=== PATIENT | male | born 1975 | race Two or more races ===

== ENCOUNTER 2017-12-06 01:28 | Emergency (ER) | payer MEDICAID, OTHER ==
[~2017-12-06] VITALS: Ht 177.8 cm; Wt 172.4 kg
[2017-12-06] MEDS ORDERED: NALOXONE HCL 0.4 MG/ML AMPUL ONE (01:38)
--- NOTE | 2017-12-06 01:40 | NUR ---
Pt [id number] [facility] D/T BEING LETHARGIC AND SLURRING SPEECH. Pt IS INCOHERENT AND GOING IN AND OUT OF SLEEP, WITH SLURRED & DELAYED SPEECH. PER EMS REPORT. Pt TOOK SEROQUIL & TRAZADONE. Pt TRANSFERED TO BED SAFELY. MD AT BEDSIDE.
[2017-12-06] MEDS ORDERED: IV NS 0.9% 500 ML BAG IV ONE (02:00)
[2017-12-06 02:10] LABS: BASOPHILS % (AUTO) 0.6 % (0.0-2.0); EOSINOPHILS % (AUTO) 4.6 % (0.0-6.0); HEMATOCRIT 40 % (39-51); HEMOGLOBIN 13.4 g/dL (13.5-17.5); LYMPHOCYTES # (AUTO) 2.1 /CMM (0.8-4.8); LYMPHOCYTES % (AUTO) 33.7 % (20.0-44.0); MEAN CORPUSCULAR HEMOGLOBIN 30 PG (26.0-33.0); MEAN CORPUSCULAR HGB CONC 33 g/dl (31.0-36.0); MEAN CORPUSCULAR VOLUME 89 fL (80-96); MONOCYTES # (AUTO) 0.6 /CMM (0.1-1.30); MONOCYTES % (AUTO) 8.9 % (2.0-12.0); NEUTROPHILS # (AUTO) 3.3 /CMM (1.8-8.9); NEUTROPHILS % (AUTO) 52.2 % (43.0-81.0); PLATELET COUNT (AUTO) 194 /CMM (150-450); RDW COEFFICIENT OF VARIATION 13.3 (11.5-15.0); RED BLOOD CELL COUNT(AUTO) 4.53 MIL/uL (4.5-6.0); WHITE BLOOD COUNT (AUTO) 6.3 K/uL (4.3-11.0)
[2017-12-06 02:21] LABS: CALCIUM, SERUM 8.6 mg/dL (8.5-10.1); CARBON DIOXIDE 29 mmol/L (21-32); CHLORIDE 100 mmol/L (98-107); GLUCOSE 97 mg/dL (74-106); POTASSIUM 3.9 mmol/L (3.5-5.1); SODIUM SERUM 134 mmol/L (136-145); UREA NITROGEN, BLOOD 22 mg/dL (7-18)
[2017-12-06 02:26] LABS: ACETAMINOPHEN < 10 ug/ml (10-30); ALANINE AMINOTRANSFERASE 32 U/L (12-78); ALBUMIN 3.9 g/dL (3.4-5.0); ALCOHOL, BLOOD < 3 mg/dL (0-0); ALKALINE PHOSPHATASE 96 U/L (46-116); ASPARTATE AMINOTRANSFERASE 39 U/L (15-37); BILIRUBIN,DIRECT 0.1 mg/dL (0.0-0.2); BILIRUBIN,TOTAL 0.4 mg/dL (0.2-1.0); SALICYLATE 4.1 mg/dL (2.8-20.0); TOTAL PROTEIN, SERUM 7.2 g/dL (6.4-8.2)
--- NOTE | 2017-12-06 03:05 | NUR ---
attempted to obtain urine from pt via straight cath from 3 RNs. Was unable to successfully straight cath pt and collect urine. Will try again at a later time.
[2017-12-06] MEDS ORDERED: IV NS 0.9% 1,000 ML BAG IV ONE (03:30)
--- NOTE | 2017-12-06 04:00 | NUR ---
Pt WAS YELLING OUT SAYIGN THAT HE WAS COLD. GOT Pt A BLANKET. ATTEMPED TO GET A URINE SAMPLE AGAIN. BUT Pt FELL BACK ASLEEP UNABLE TO HOLD URINAL IN PLACE.
--- NOTE | 2017-12-06 07:38 | NUR ---
RECEIVED REPORT FOR BILLY. PATIENT SLEEPING AT THIS TIME, VSS. WILL CONTINUE TO MONITOR.
--- NOTE | 2017-12-06 07:38 | NUR ---
REPORT GIVEN TO MELO FOR Pt's BILLY
--- NOTE | 2017-12-06 09:20 | NUR ---
URINE OBTAINED AND SEN TO LAB.
[2017-12-06 09:43] LABS: APPEARANCE,URINE Clear (CLEAR); BILIRUBIN,URINE Negative (NEGATIVE); BLOOD, URINE Trace-intact Ery/uL (NEGATIVE); COLOR,URINE Yellow (YELLOW); KETONES,URINE Negative (NEGATIVE); LEUKOCYTE ESTERASE ,URINE Negative (NEGATIVE); NITRITE, URINE Negative (NEGATIVE); PH,URINE 5.5 (5.0-8.0); PROTEIN,URINE Negative (NEGATIVE); UGLUCOSE Negative (NEGATIVE); UROBILINOGEN,URINE 0.2 EU/dL (0.2)
[2017-12-06 10:11] LABS: BACTERIA,URINE Few /HPF (None Seen); SQUAMOUS EPITHELIAL CELL,UR Few /HPF (None Seen)
--- NOTE | 2017-12-06 13:20 | NUR ---
IV removed. Catheter intact and site benign. Pressure and 4x4 applied to site. No bleeding noted. Patient discharged to home in stable condition. Written and verbal after care instructions given. Patient verbalizes understanding of instruction.
[2017-12-06 13:23] VITALS: BP 142/76
== END 2017-12-06 13:20 | disposition home or self-care (01) ==
LOC: ER 01:30
DX: R41.82 Altered mental status, unspecified (principal)
CPT/HCPCS: 36415; 80048; 80076; 80305; 80329; 81001; 82962; 85025; 93005; 96360; 99285; A4606; G0480 ×2; J7030; J7040; Z7610; 81000-TC; J2310